=== PATIENT | female | born 1930 | race Caucasian/White ===

== ENCOUNTER → 2016-12-24 | Outpatient (CLI) | payer MEDICARE, OTHER ==
[2016-12-24 11:42] LABS: APPEARANCE,URINE CLEAR (CLEAR); GLUCOSE, URINE (UA) NEGATIVE (NEGATIVE); KETONES,URINE NEGATIVE (NEGATIVE); LEUKOCYTE ESTERASE ,URINE NEGATIVE (NEGATIVE); OCCULT BLOOD,URINE NEGATIVE (NEGATIVE); PH,URINE 5.5 (5.0-8.0); PROTEIN,URINE SEE CONFIRM (NEGATIVE)
[2016-12-24 11:43] LABS: ADD UA MICROSCOPIC YES
[2016-12-24 11:45] LABS: ALBUMIN 3.6 g/dL (3.4-5.0); BASOPHILS # (AUTO) 0.08 K/uL (0.00-0.20); BASOPHILS % (AUTO) 1.4 % (0.0-2.0); CALCIUM, TOTAL 8.9 mg/dL (8.8-10.5); CHOL/HDL RATIO 3.3 (3.9-5.7); CREATININE 1.71 mg/dL (0.60-1.30); EOSINOPHILS # (AUTO) 0.31 K/uL (0.00-0.70); EOSINOPHILS % (AUTO) 5.54 % (1.0-6.0); HEMATOCRIT 34.9 % (36-46); HEMOGLOBIN 10.9 g/dL (12.0-16.0); LYMPHOCYTES # (AUTO) 1.7 K/uL (1.0-4.8); LYMPHOCYTES % (AUTO) 30.2 % (22.0-44.0); MAGNESIUM 2.4 mg/dL (1.80-2.40); MEAN CORPUSCULAR HEMOGLOBIN 28.1 pg (26.0-34.0); MEAN CORPUSCULAR HGB CONC 31.2 G/dL (31.0-37.0); MEAN CORPUSCULAR VOLUME 90 fL (80-100); MONOCYTES # (AUTO) 0.5 K/uL (0.1-1.0); NEUTROPHILS % (AUTO) 54.8 % (40.0-70.0); PHOSPHORUS 2.8 mg/dL (2.5-4.9); PLATELET COUNT (AUTO) 190 K/uL (150-450); POTASSIUM 4.3 mmol/L (3.5-5.1); RED BLOOD CELL COUNT(AUTO) 3.88 MIL/uL (4.00-5.20); WHITE BLOOD COUNT (AUTO) 5.6 K/uL (4.5-11.0)
[2016-12-24 11:52] LABS: HEMOGLOBIN A1C 5.5 % (4.5-6.2)
[2016-12-24 11:53] LABS: SULFOSALICYLIC ACID,URINE 2+ (Negative)
[2016-12-24 11:56] LABS: RBC,URINE 0-2 /HPF (0-2); SQUAMOUS EPITHELIAL CELL,UR Rare /LPF (None Seen)
[2016-12-25 14:16] LABS: CREATININE, URINE (mALB) 58.2 mg/dL (Not Estab.)
== END | disposition home or self-care (01) ==
LOC: LABPV 08:58
PROVIDERS: ATTEND Internal Medicine Nephrology
DX: I12.9 Hypertensive chronic kidney disease with stage 1 through stage 4 chronic kidney disease, or unspecified chronic kidney disease (principal); N18.4 Chronic kidney disease, stage 4 (severe); E78.5 Hyperlipidemia, unspecified; E11.59 Type 2 diabetes mellitus with other circulatory complications
CPT/HCPCS: 81050; 82043; 82306; 82570; 82575; 83036; 83735; 83970; 84156

== ENCOUNTER → 2016-12-25 | Outpatient (CLI) | payer MEDICARE, OTHER | END | disposition home or self-care (01) | LOC: RADPV 13:28 | PROVIDERS: ATTEND Internal Medicine Nephrology | DX: N28.1 Cyst of kidney, acquired (principal); N27.1 Small kidney, bilateral; N18.4 Chronic kidney disease, stage 4 (severe) | CPT/HCPCS: 76770 ==